=== PATIENT | female | born 1980 | race Caucasian/White ===

== ENCOUNTER 2018-01-22 11:23 | Emergency (ER) | payer OTHER ==
[~2018-01-22] VITALS: Ht 157.5 cm; Wt 112.5 kg
--- NOTE | 2018-01-22 12:33 | ED GENERAL ADULT ---
See Addendum History of Present Illness General Chief Complaint: Lower Extremity Problems Stated Complaint: 8 MO , RLE SWELLING Source: patient Exam Limitations: no limitations Vital Signs & Intake/Output Vital Signs & Intake/Output Vital Signs Date Time Temp Pulse Resp B/P B/P Pulse O2 O2 Flow FiO2 Mean Ox Delivery Rate 01/22 1336 88 18 147/89 99 Room Air 01/22 1130 98.0 96 18 134/87 100 Room Air Allergies Coded Allergies: No Known Allergies (01/11/18) Triage Note: PT TO ER C/C RLE SWELLING X 1 MONTH. PT WAS ADVISED TO COME IN TO R/O DVT BY OBGYN. 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 DENIES ABD CRAMPING, VAGINAL BLEEDING/DC OR RELATED COMPLAINTS. PT OF [place] AND MATERNAL MEDICINE. PT DENIES RLE PAIN, REDDNESS. SCHEDULED FOR INDUCTION 02/09/2018 Triage Nurses Notes Reviewed? yes Onset: Abrupt Duration: day(s):, constant Timing: recent history Injury Environment: home No Modifying Factors: none : Yes Patient currently breastfeeds: No HPI: 37-year-old female approximately 36 weeks comes into the emergency room with complaints of swelling to her legs bilaterally. History of preeclampsia in her previous . She denies any chest pain shortness of breath or headaches. Some cramping to right lower abdomen at times. Denies any leakage of fluid or vaginal bleeding. She comes in for further evaluation. (Elio Grimes) Past History Travel History Traveled to [place] past 21 day No Medical History Any Pertinent Medical History? 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 No (Elio Grimes) Review of Systems Review of Systems Constitutional: Reports: no symptoms. EENTM: Reports: no symptoms. Respiratory: Reports: no symptoms. Cardiovascular: Reports: no symptoms. GI: Reports: no symptoms. Genitourinary: Reports: see HPI. Musculoskeletal: Reports: see HPI. Skin: Reports: no symptoms. Neurological/Psychological: Reports: no symptoms. Hematologic/Endocrine: Reports: no symptoms. Immunologic/Allergic: Reports: no symptoms. All Other Systems: Reviewed and Negative (Suleman NARANJO,Elio) Physical Exam Physical Exam General Appearance: well developed/nourished, alert, awake Head: atraumatic Eyes: Bilateral: normal appearance. Ears, Nose, Throat: normal ENT inspection, hearing grossly normal Neck: normal inspection Respiratory: no respiratory distress Cardiovascular: regular rate/rhythm Back: normal inspection Extremities: No edema to legs bilaterally, some mild swelling appreciated to the right leg, no erythema bilaterally,, no warmth, Neurologic/Psych: awake, alert, oriented x 3 Skin: intact, normal color Core Measures ACS in differential dx? No CVA/TIA Diagnosis: No Sepsis Present: No Sepsis Focused Exam Completed? No (Elio Grimes) Progress Differential Diagnoses I considered the following diagnoses in my evaluation of the patient: DVT, preeclampsia, venous stasis, eclampsia Plan of Care: Orders Procedure Date/time Status URINALYSIS 01/22 1133 Complete Laboratory Tests 01/22/18 1147: Urinalysis LIGHT H, Urine Color YEL, Urine Clarity HAZY H, Urine pH 6.0, Ur Specific [place] >= 1.030, Urine Protein TRACE H, Urine Ketones 15 H, Urine Nitrite NEG, Urine Bilirubin NEG@ICTO, Urine Urobilinogen 1.0, Ur Leukocyte Esterase NEG, Ur Microscopic SEDIMENT EXAMINED, Urine RBC RARE, Urine WBC 1-3 H , Ur Epithelial Cells MANY H, Urine Crystals 3+ CA OX H, Urine Bacteria MANY H, Urine Mucus MOD H, Urine Hemoglobin NEG, Urine Glucose NEG Diagnostic Imaging: Viewed by Me: Ultrasound. Discussed w/RAD: Ultrasound. Radiology Impression: PATIENT: ASHKAN GONZALEZ PRESENT AGE: 37 PATIENT ACCOUNT NO: [id number] : 79 LOCATION: [facility] ORDERING PHYSICIAN: Elio NARANJO SERVICE DATE: 01/22/18-1234 EXAM TYPE: US - US -UNILATERAL VENOUS DOPPLER EXAMINATION: US TRIPLEX LOWER EXTREMITY, LEFT CLINICAL INFORMATION: 37-year-old female presented with left leg swelling. COMPARISON: None TECHNIQUE: Color-flow triplex imaging with spectral analysis and compression Doppler were performed on the lower extremity. FINDINGS: Respiratory variation, normal compression and augmented flow are noted throughout the lower extremity. The visualized common femoral vein, superficial femoral vein, profunda femoral vein, popliteal vein and midcalf peroneal and posterior tibial venous segments show no evidence of deep venous thrombosis. There is no Levin's cyst. Incidental note is made of presence of very slow flow within the left greater saphenous vein. IMPRESSION: No evidence of deep venous thrombosis involving the left lower extremity. DICTATED BY: Korina Thompson MD DATE/TIME DICTATED:01/22/181430 MATERIAL EXPEDITER:QUENTIN DATE/TIME TRANSCRIBED:01/22/181430 CONFIDENTIAL, DO NOT COPY WITHOUT APPROPRIATE AUTHORIZATION. <Electronically signed in Other Vendor System> SIGNED BY: Korina Thompson MD 01/22/18 1435, PATIENT: ASHKAN GONZALEZ PRESENT AGE: 37 PATIENT ACCOUNT NO: [id number] : 79 LOCATION: [facility] ORDERING PHYSICIAN: Declan NARANJO SERVICE DATE: 01/22/18 EXAM TYPE: US - US-UNILATERAL VENOUS DOPPLER EXAMINATION: US TRIPLEX LOWER EXTREMITY, RIGHT CLINICAL INFORMATION: Right lower extremity swelling. COMPARISON: None TECHNIQUE : Color-flow triplex imaging with spectral analysis and compression Doppler were performed on the lower extremity. FINDINGS: Respiratory variation, normal compression and augmented flow are noted throughout the lower extremity. The visualized common femoral vein, superficial femoral vein, profunda femoral vein, popliteal vein and midcalf peroneal and posterior tibial venous segments show no evidence of deep venous thrombosis. There is no Levin's cyst. IMPRESSION: No evidence of deep venous thrombosis involving the right lower extremity. DICTATED BY: Korina Thompson MD DATE/TIME DICTATED:01/22/181226 MATERIAL EXPEDITER: QUENTIN DATE/TIME TRANSCRIBED:01/22/181226 CONFIDENTIAL, DO NOT COPY WITHOUT APPROPRIATE AUTHORIZATION. <Electronically signed in Other Vendor System> SIGNED BY: Korina Thompson MD 01/22/18 1232 Initial ED EKG: none (Elio Grimes) Departure Departure Disposition: HOME OR SELF CARE Condition: Stable Clinical Impression Primary Impression: Hypertension Secondary Impressions: Leg swelling Referrals: Jesica Cooper (PCP/Family) Additional Instructions: Follow-up with your DENTAL SERVICE CHIEF doctor. Return if any concerns worsening symptoms. Please go over all results of today's visit with your primary care doctor. Contact your primary care doctor to let them know you were here in the emergency room. There may be nonspecific findings which may not be related to your visit today here in the emergency room but may require further evaluation and chronic monitoring by your primary care doctor. If you had a laceration today the chance of foreign body always remains. You should follow-up with your primary care doctor for recheck in 3-5 days for a wound check. If you had an x-ray done there is a chance that a fracture could have been missed on initial read and you should follow-up with your primary care doctor for repeat x-rays if symptoms persist. If your blood pressure was elevated here in the emergency room please have rechecked by [facility] primary care doctor within the next 48. If you were prescribed a narcotic here in the emergency room or any type of controlled substances you're not allowed to drive while taking this medication or operate any type of heavy machinery. Narcotics can make you feel lightheaded dizziness nausea and can cause constipation. You may need to pepper picker a stool softener. Thank you for choosing [facility] emergency room. Please return to the emergency room immediately if you have any other concerns worsening of symptoms. Departure Forms: Customer Survey General Discharge Information Comments 01/22/2018 3:32:45 PM Spoke with the on-call DENTAL SERVICE CHIEF doctor TONYA. Results were discussed with him. He went over the patient's blood work yesterday. She has chronic hypertension has been running in the 140s in the office. She has no complaints of headache currently. She clinically looks well. She is nontoxic-appearing. At this time there is no need for repeat blood work. Discussed that she had some small proteinuria. They will follow-up in the office next week. No evidence of DVT. Case is discussed with Dr. Parry. Patient understands and agrees plan of care. She looks well. (Elio Grimes) PA/AD SETTER Co-Sign Statement Statement: ED Attending supervision documentation- [] I saw and evaluated the patient. I have also reviewed all the pertinent lab results and diagnostic results. I agree with the findings and the plan of care as documented in the PA's/AD SETTER's documentation. [X] I have reviewed the ED Record and agree with the PA's/AD SETTER's documentation. [] Additions or exceptions (if any) to the PAs/AD SETTER's note and plan are summarized below: [] (Sohan COTTRELL,Maury Gonzalez) Critical Care Note Critical Care Note Critical Care Time: non-applicable (Suleman NARANJO,Elio)
[2018-01-22 13:36] VITALS: BP 147/89
--- NOTE | 2018-01-22 14:35 | ULTRASOUND REPORT ---
EXAMINATION: US TRIPLEX LOWER EXTREMITY, LEFT CLINICAL INFORMATION: 37-year-old female presented with left leg swelling. COMPARISON: None TECHNIQUE: Color-flow triplex imaging with spectral analysis and compression Doppler were performed on the lower extremity. FINDINGS: Respiratory variation, normal compression and augmented flow are noted throughout the lower extremity. The visualized common femoral vein, superficial femoral vein, profunda femoral vein, popliteal vein and midcalf peroneal and posterior tibial venous segments show no evidence of deep venous thrombosis. There is no Levin's cyst. Incidental note is made of presence of very slow flow within the left greater saphenous vein. IMPRESSION: No evidence of deep venous thrombosis involving the left lower extremity.
== END 2018-01-22 15:08 ==
LOC: ERH 11:23
DX: O11.3 Pre-existing hypertension with pre-eclampsia, third trimester (principal); Z3A.36 36 weeks gestation of pregnancy
CPT/HCPCS: 81001